=== PATIENT | female | born 1980 | race African-American/Black ===

== ENCOUNTER 2020-03-25 09:15 | Inpatient (IN) | payer MEDICAID ==
[~2020-03-25] VITALS: Ht 175.3 cm; Wt 160.6 kg
[2020-03-25] MEDS: LACTATED RINGERS 1,000 ML IV SCH ×2 (06:00→11:25)
[2020-03-25] MEDS ORDERED: RHO(D) IMMUNE GLOBULIN 300 MCG/SYR IM ONE (10:00)
[2020-03-25] MEDS ORDERED: LIDOCAINE HCL 1% 20ML VIAL (Pyxis) INJ INFIL SCH (10:00)
[2020-03-25] MEDS ORDERED: NALOXONE HCL 0.4 MG/ML 1ML VIAL IM PRN (10:00)
[2020-03-25] MEDS ORDERED: DEXT 5%/LACTATED RINGERS 1,000 ML IV SCH (10:05)
[2020-03-25] MEDS ORDERED: LABE200T28 MT (10:56)
[2020-03-25] MEDS ORDERED: OMEG-118 MT (10:56)
[2020-03-25] MEDS ORDERED: PREN1TAB78 PO (10:56)
[2020-03-25] MEDS ORDERED: CLAR10 MT (10:56)
[2020-03-25 12:14] LABS: COLOR URINE YELLOW (YELLOW); KETONES URINE NEGATIVE (NEGATIVE); LEUKOCYTE ESTERASE URINE NEGATIVE (NEGATIVE); NITRITE URINE NEGATIVE (NEGATIVE); OCCULT BLOOD URINE NEGATIVE (NEGATIVE); PROTEIN URINE NEGATIVE (NEGATIVE); SPECIFIC GRAVITY URINE 1.013 (1.005-1.030); UROBILINOGEN URINE 0.2 E.U./dL (0.2-1.0)
[2020-03-25 12:14] LABS: BASOPHILS % 0.4 % (0.0-2.0); EOSINOPHILS % 0.8 % (0.0-5.0); HEMATOCRIT. 40.8 % (36.0-48.0); HEMOGLOBIN. 13.6 g/dL (12.0-16.0); LYMPHOCYTES % 22.9 % (20.0-50.0); MEAN CORPUSCULAR VOLUME 87.4 fL (81.0-99.0); MEAN PLATELET VOLUME 9.5 fl (7.4-10.4); NEUTROPHILS % 66.9 % (40.0-76.0); PLATELET 180 x1000/uL (130-400); RED BLOOD CELL COUNT 4.67 mill/uL (4.2-5.4); RED CELL DISTRIBUTION WIDTH 15.1 % (11.6-14.6)
[2020-03-25 12:16] LABS: CLARITY URINE CLEAR (CLEAR)
[2020-03-25 12:26] LABS: INR 0.9; PROTHROMBIN TIME 9.8 sec (9.6-11.0)
[2020-03-25 12:31] LABS: *BENZODIAZEPINES SCREEN URINE NEGATIVE (NEGATIVE); *COCAINE SCREEN URINE NEGATIVE (NEGATIVE)
[2020-03-25 12:32] LABS: CANNABINOID URINE SCREEN NEGATIVE (NEGATIVE); OPIATES URINE SCREEN NEGATIVE (NEGATIVE)
[2020-03-25 12:33] LABS: PHENCYCLIDINE URINE SCREEN NEGATIVE (NEGATIVE)
[2020-03-25 12:34] LABS: *AMPHETAMINES SCREEN URINE NEGATIVE (NEGATIVE); METHADONE URINE SCREEN NEGATIVE (NEGATIVE)
[2020-03-25 12:41] LABS: *BARBITURATES SCREEN URINE NEGATIVE (NEGATIVE)
[2020-03-25 12:45] LABS: HEPATITIS B SURFACE ANTIGEN NEGATIVE
[2020-03-25] MEDS: DEXT 5%/LR + PITOCIN 20UNITS/L 1,000 ML IV SCH (14:21)
[2020-03-25] MEDS: LABETALOL HCL 200MG TABLET PO SCH ×2 (15:24→22:00)
[2020-03-25] MEDS: BUTORPHANOL TARTRATE 2 MG/ML VIAL IV PRN (23:06)
[2020-03-26] MEDS: BUTORPHANOL TARTRATE 2 MG/ML VIAL IV PRN (01:28)
[2020-03-26] MEDS: LABETALOL HCL 200MG TABLET PO SCH ×2 (07:00→16:09)
[2020-03-26] MEDS: LACTATED RINGERS 500ML 500 ML IV SCH ×2 (07:00→13:18)
[2020-03-26] MEDS: MISOPROSTOL 100MCG TABLET VG PRN ×3 (11:21→20:10)
[2020-03-26] MEDS ORDERED: LACTATED RINGERS 500 ML IV SCH (20:51)
[2020-03-26 22:15] LABS: CHLORIDE 110 mEq/L (98-107)
[2020-03-27] MEDS: LABETALOL HCL 200MG TABLET PO SCH ×3 (00:23→16:40)
[2020-03-27] MEDS: MISOPROSTOL 100MCG TABLET VG PRN ×2 (00:24→04:34)
[2020-03-27] MEDS ORDERED: DIPHENHYDRAMINE 50MG/ML VIAL IV PRN (14:30)
[2020-03-27] MEDS ORDERED: ONDANSETRON HCL 4MG/2ML INJ IV PRN (14:30)
[2020-03-27] MEDS ORDERED: METOCLOPRAMIDE HCL 10MG/2ML VIAL IV PRN (14:30)
[2020-03-27] MEDS ORDERED: ROPIVACAINE HCL/PF EPIDURAL 200 ML EPI SCH (14:30)
[2020-03-27] MEDS: BUTORPHANOL TARTRATE 2 MG/ML VIAL IV PRN ×2 (18:46→22:40)
[2020-03-28] MEDS: LABETALOL HCL 200MG TABLET PO SCH ×4 (00:32→15:43)
[2020-03-28] MEDS ORDERED: CEFAZOLIN 2,000 MG in DEXT 5% WATER 100 ML IV SCH (03:00)
[2020-03-28] MEDS: BUTORPHANOL TARTRATE 2 MG/ML VIAL IV PRN (04:43)
[2020-03-28 08:40] LABS: BASOPHILS % 0.3 % (0.0-2.0); EOSINOPHILS % 0.2 % (0.0-5.0); HEMATOCRIT. 38.8 % (36.0-48.0); HEMOGLOBIN. 12.9 g/dL (12.0-16.0); LYMPHOCYTES % 10.4 % (20.0-50.0); MEAN CORPUSCULAR HEMOGLOBIN 28.7 pg (28.0-32.0); MEAN CORPUSCULAR VOLUME 86.3 fL (81.0-99.0); MONOCYTES % 8.5 % (2.0-8.0); NEUTROPHILS % 80.6 % (40.0-76.0); PLATELET 158 x1000/uL (130-400); RED CELL DISTRIBUTION WIDTH 15.2 % (11.6-14.6)
[2020-03-28 08:48] LABS: PROTHROMBIN TIME 10.2 sec (9.6-11.0)
[2020-03-28] MEDS ORDERED: AMPICILLIN 2,000 MG in SODIUM CHLORIDE 0.9% 100 ML IV NR (10:30)
[2020-03-28] MEDS ORDERED: FENTANYL CITRATE/PF 50MCG/ML 2ML VIAL ONE (12:26)
[2020-03-28] MEDS ORDERED: MORPHINE SULFATE/PF 1MG/ML 10ML AMP ONE (12:27)
[2020-03-28] MEDS ORDERED: MEPERIDINE HCL/PF 25MG/ML CPJ IV PRN (12:45)
[2020-03-28] MEDS ORDERED: ONDANSETRON HCL 4MG/2ML INJ IV PRN ×2 (12:45→14:15)
[2020-03-28] MEDS ORDERED: LABETALOL 5MG/ML SYR 20 MG/4 ML SYRINGE IV PRN (12:45)
[2020-03-28] MEDS ORDERED: DIPHENHYDRAMINE 12.5MG/5ML UDC PO NR (12:45)
[2020-03-28] MEDS ORDERED: BUTORPHANOL TARTRATE 2 MG/ML VIAL IM PRN (12:45)
[2020-03-28] MEDS ORDERED: HYDROMORPHONE HCL/PF 2MG/ML CPJ IV PRN (12:45)
[2020-03-28] MEDS: DEXT 5%/LR + PITOCIN 20UNITS/L 1,000 ML IV SCH (14:06)
[2020-03-28] MEDS ORDERED: DEXT 5%/LR + PITOCIN 20UNITS/L 1,000 ML IV SCH (14:14)
[2020-03-28] MEDS ORDERED: HEMORRHOIDAL SUPP PR PRN (14:15)
[2020-03-28] MEDS ORDERED: ACETAMINOPHEN WITH CODEINE 300/30MG TABLET PO PRN ×2 (14:15)
[2020-03-28] MEDS ORDERED: LANOLIN OINT 7GM TUBE TOP PRN (14:15)
[2020-03-28] MEDS ORDERED: DIPHENHYDRAMINE 25MG CAPSULE PO PRN (14:15)
[2020-03-28] MEDS ORDERED: IBUPROFEN 400MG TABLET PO PRN (14:15)
[2020-03-28] MEDS ORDERED: BISACODYL 10MG SUPP PR PRN (14:15)
[2020-03-28] MEDS ORDERED: AMPICILLIN 1,000 MG in SODIUM CHLORIDE 0.9% 50 ML IV SCH (15:00)
[2020-03-28] MEDS: KETOROLAC 15MG/ML VIAL IV PRN ×2 (15:35→21:39)
[2020-03-28 16:00] VITALS: BP 136/78
[2020-03-28 17:30] VITALS: BP 141/71
[2020-03-28 19:00] VITALS: BP 126/70
[2020-03-28] MEDS: DIPHENHYDRAMINE 50MG/ML VIAL IV PRN (19:51)
[2020-03-28] MEDS ORDERED: DOCUSATE SODIUM 100MG CAPSULE PO SCH (21:00)
[2020-03-29] VITALS: BP 103/51
[2020-03-29 04:00] VITALS: BP 105/56
[2020-03-29] MEDS ORDERED: TETANUS, DIPHTHERIA, PERTUSSIS VAC/PF 0.5ML (>7YR OLD) IM ONE (04:00)
[2020-03-29] MEDS: DIPHENHYDRAMINE 50MG/ML VIAL IV PRN (05:16)
[2020-03-29] MEDS: KETOROLAC 15MG/ML VIAL IV PRN (05:16)
[2020-03-29] MEDS: LABETALOL HCL 200MG TABLET PO SCH ×3 (06:00→21:25)
[2020-03-29 07:04] LABS: BASOPHILS % 0.1 % (0.0-2.0); EOSINOPHILS % 0.4 % (0.0-5.0); HEMATOCRIT. 34.7 % (36.0-48.0); HEMOGLOBIN. 11.4 g/dL (12.0-16.0); LYMPHOCYTES % 15.2 % (20.0-50.0); MEAN CORPUSCULAR HEMOGLOBIN 28.8 pg (28.0-32.0); MEAN CORPUSCULAR VOLUME 87.5 fL (81.0-99.0); MEAN PLATELET VOLUME 9.7 fl (7.4-10.4); NEUTROPHILS % 75.3 % (40.0-76.0); PLATELET 153 x1000/uL (130-400); RED BLOOD CELL COUNT 3.96 mill/uL (4.2-5.4)
[2020-03-29 08:00] VITALS: BP 110/65
[2020-03-29] MEDS ORDERED: PRENATAL VIT/FE FUMARATE/FA TABLET PO SCH (09:00)
[2020-03-29] MEDS: FERROUS SULFATE 325MG TABLET PO SCH ×2 (09:21→21:25)
[2020-03-29 12:00] VITALS: BP 126/78
[2020-03-29 16:09] VITALS: BP 125/70
[2020-03-29 20:00] VITALS: BP 116/64
[2020-03-29] MEDS: HYDROCODONE/ACETAMINOPHEN 5/325MG TABLET PO PRN (20:13)
[2020-03-30] VITALS: BP 113/71
[2020-03-30] MEDS: HYDROCODONE/ACETAMINOPHEN 5/325MG TABLET PO PRN ×2 (03:44→10:24)
[2020-03-30 04:00] VITALS: BP 129/81
[2020-03-30] MEDS: LABETALOL HCL 200MG TABLET PO SCH (06:04)
[2020-03-30 08:00] VITALS: BP 125/78
[2020-03-30 10:24] VITALS: BP 125/78
== END 2020-03-30 11:45 | disposition home or self-care (01) | DRG 540 ==
LOC: 8 EST LDRP 09:15 → 8EST 03-28 16:36
PROVIDERS: ADMIT Obstetrics & Gynecology; ATTEND Obstetrics & Gynecology
PROC: 10D00Z1 Extraction of Products of Conception, Low, Open Approach (ICD-10-PCS; principal; 2020-03-28)
DX: O61.9 Failed induction of labor, unspecified (principal); E66.9 Obesity, unspecified; O99.214 Obesity complicating childbirth; E07.9 Disorder of thyroid, unspecified; O99.284 Endocrine, nutritional and metabolic diseases complicating childbirth; O10.92 Unspecified pre-existing hypertension complicating childbirth; O11.4 Pre-existing hypertension with pre-eclampsia, complicating childbirth; Z37.0 Single live birth; Z88.5 Allergy status to narcotic agent; Z3A.36 36 weeks gestation of pregnancy
CPT/HCPCS: 36415; 76805; 76815; 76818; 80053; 80305; 80359; 81003; 84550; 85025; 85384; 86592; 86703; 86762; 86850; 86900; 87340; 88307; 90715; J0290; J0595; J0690; J1200; J1885; J2274; J2590; J3010; J7050; J7060; J7120; J7121